=== PATIENT | male | born 1985 | race Two or more races ===

== ENCOUNTER 2019-06-10 14:41 | Emergency (ER) | payer SELFPAY ==
[2019-06-10 14:47] VITALS: BP 146/80
[2019-06-10] MEDS ORDERED: IBUPROFEN 800 MG TABLET PO ONE (16:29)
[2019-06-10] MEDS ORDERED: CLINDAMYCIN HCL 150 MG CAPSULE PO ONE (16:29)
[2019-06-10] MEDS ORDERED: HYDROCODONE/ACETAMINOPHEN 5-325 MG TABLET PO ONE (16:29)
--- NOTE | 2019-06-10 16:35 | ER Document Report ---
HPI - HPI Time Seen by Provider: 06/10/19 15:58 Pain Level: 4 Context: Patient is a 33-year-old male who presents to the emergency department with a chief complaint of right lower dental pain. Patient states this started last night and has progressively gotten worse. Patient states he is now had right lower jaw swelling. Patient denies fever. Patient states he has had dental infections in the past when he lived in [place]. Patient denies difficulty breathing or swallowing. - MUSCULOSKELETAL Musculoskeletal: REPORTS: Extremity pain - Jaw and tooth pain Past Medical History - General Information source: Patient - Social History Smoking Status: Never Smoker Frequency of alcohol use: Occasional Drug Abuse: None Lives with: Family Family History: None Patient has suicidal ideation: No Patient has homicidal ideation: No - Past Medical History Cardiac Medical History: Reports: None Pulmonary Medical History: Reports: None EENT Medical History: Reports: None Neurological Medical History: Reports: None Endocrine Medical History: Reports: None Renal/ Medical History: Reports: None. Denies: Hx Peritoneal Dialysis Malignancy Medical History: Reports None GI Medical History: Reports: None Musculoskeletal Medical History: Reports None Skin Medical History: Reports None Psychiatric Medical History: Reports: None Traumatic Medical History: Reports: None Infectious Medical History: Reports: None Surgical Hx: Negative Vertical Provider Document - CONSTITUTIONAL Agree With Documented VS: Yes Exam Limitations: No Limitations General Appearance: No Apparent Distress - INFECTION CONTROL TRAVEL OUTSIDE OF THE [place] IN LAST 30 DAYS: No - HEENT HEENT: Atraumatic - Is just one prescription, Normocephalic, PERRLA Mouth Diagram: 1 - Loose tooth with erythema and tenderness to the gumline. No obvious abscess. Notes: Uvula midline, no signs of ludwigs angina, airway patent, no broken teeth. Course - Re-evaluation Re-evalutation: 06/10/19 16:44 Patient's physical exam and history is most consistent with a infected tooth. Patient is able to swallow, no facial swelling noted, airway is patent, vital signs are normal. I do not suspect Jonny's angina, peritonsilar abscess, or airway obstruction. The patient will be started on oral antibiotics. I have given the patient education on their antibiotics. Patient was given instructions to follow-up with a dentist this week. Return precautions were given. Verbal discharge instructions were given. Patient verbalized understanding. Patient is stable for discharge. - Vital Signs Vital signs: Temp Pulse Resp BP Pulse Ox 98.2 F 95 18 146/80 H 98 06/10/19 14:45 06/10/19 14:45 06/10/19 14:45 06/10/19 14:45 06/10/19 14:45 Discharge - Discharge Clinical Impression: Dental infection Condition: Stable Disposition: HOME, SELF-CARE Additional Instructions: Hoy lo vieron en el departamento de emergencias por hinchazn facial derecha y dolor dental inferior derecho. Parece que tiene un diente flojo y leisa infeccin. En marychuy momento no hay un absceso obvio que deba cortarse y drenarse. Se le administrar antibiticos orales llamados clindamicina. Por favor tome esto por 1 semana completa. Tambin te recetan Nemours. Nemours es un medicamento narctico para el dolor. No tome Tylenol mientras est tomando marychuy medicamento. No conduzca ni maneje maquinaria pesada mientras est tomando marychuy medicamento. Tambin le recetan Ultram. Motrin es un antiinflamatorio. Por favor, coma alimentos cuando tome marychuy medicamento. Regrese al departamento de emergencias por fiebre raza, empeoramiento del dolor, empeoramiento de la hinchazn de la estee. Today you were seen in the emergency department for right facial swelling and right lower dental pain. It does appear that you have a loose tooth as well as an infection. At this time there is no obvious abscess that needs to be cut and drained. He will be placed on oral antibiotics called clindamycin. Please take this for 1 full week. You are also being prescribed Nemours. Nemours is a narcotic medication for pain. Do not take Tylenol while on this medication. Do not drive or operate heavy machinery while on this medication. You are also being prescribed Ultram. Motrin is an anti-inflammatory. Please eat food when taking this medication. Please return to the emergency department for high fevers, worsening pain, worsening swelling to the face. Dental Infection or Abscess You have an infection, perhaps an abscess (pus formation) of the gum around one of your teeth, which is probably decayed. If there is an abscess, it may drain on its own or it may need to be opened or lanced. Severe swelling or drainage around a tooth usually means a deep dental abscess which usually requires evaluation and treatment by a dentist or oral surgeon. Antibiotics may be prescribed while awaiting dental treatment. If you develop high fever with chills, worsening pain, or increasing swelling in the area, see a dentist or oral surgeon immediately or return to the Emergency Department immediately. Prescriptions: Clindamycin HCl [Cleocin 150 mg Capsule] 450 mg PO TID 7 Days #63 capsule Ibuprofen [Motrin 800 mg Tablet] 800 mg PO Q8H PRN #30 tab PRN Reason: Hydrocodone/Acetaminophen [Nemours 5-325 mg Tablet] 1 tab PO Q6 #10 tablet Referrals: [facility] [Provider Group] - Follow up as needed
[2019-06-10] MEDS ORDERED: IBUPROFEN 800 MG TABLET ONE (16:41)
[2019-06-10] MEDS ORDERED: CLINDAMYCIN HCL 150 MG CAPSULE ONE ×2 (16:42→16:53)
[2019-06-10] MEDS ORDERED: HYDROCODONE/ACETAMINOPHEN 5-325 MG TABLET ONE (16:42)
== END 2019-06-10 17:01 | disposition home or self-care (01) ==
LOC: ER 14:41
DX: K04.7 Periapical abscess without sinus (principal); K08.89 Other specified disorders of teeth and supporting structures
CPT/HCPCS: 99282